=== PATIENT | female | born 1940 ===

== ENCOUNTER 2018-04-08 13:30 | Inpatient (IN) | payer OTHER ==
[2018-04-08] MEDS ORDERED: ATORVASTATIN CA20 MG PO (14:04)
[2018-04-08] MEDS ORDERED: OSTERA TABLET1 EACH PO (14:04)
[2018-04-08] MEDS ORDERED: LOSARTAN POTASS25 MG PO (14:05)
[2018-04-08] MEDS ORDERED: SINGULAIR10 MG PO (14:05)
[2018-04-08] MEDS ORDERED: ADVAIR HFA 115/12 GM IH (14:06)
[2018-04-17] MEDS ORDERED: GABAPENTIN800 MG PO (12:14)
[2018-04-17] MEDS ORDERED: DOCUSATE SODIU100 MG PO (12:14)
[2018-04-17] MEDS ORDERED: AMOX-CLAV 875-1 EACH PO (12:15)
[2018-04-17] MEDS ORDERED: CLONAZEPAM1 MG PO (12:16)
[2018-04-17] MEDS ORDERED: PERCOCET 5-3251 EACH PO (12:16)
== END 2018-04-18 14:11 | disposition home or self-care (01) | DRG 454 ==
LOC: EDBD → O/R 04-17 05:05 → PED 04-17 05:05 → SURG 04-17 09:45 → PED 04-17 13:49 → SURG 04-17 14:16 → PED 04-18 14:11
PROVIDERS: Orthopaedic Surgery Orthopaedic Surgery of the Spine
PROC: 0SG0071 Fusion of Lumbar Vertebral Joint with Autologous Tissue Substitute, Posterior Approach, Posterior Column, Open Approach (ICD-10-PCS; 2018-04-17)
PROC: 0ST20ZZ Resection of Lumbar Vertebral Disc, Open Approach (ICD-10-PCS; 2018-04-17)
PROC: 0SG00AJ Fusion of Lumbar Vertebral Joint with Interbody Fusion Device, Posterior Approach, Anterior Column, Open Approach (ICD-10-PCS; 2018-04-17)
PROC: 07DS3ZZ Extraction of Vertebral Bone Marrow, Percutaneous Approach (ICD-10-PCS; 2018-04-17)
PROC: 0SG00A0 Fusion of Lumbar Vertebral Joint with Interbody Fusion Device, Anterior Approach, Anterior Column, Open Approach (ICD-10-PCS; principal; 2018-04-17 09:45)
DX: M48.061 Spinal stenosis, lumbar region without neurogenic claudication (principal); M51.06 Intervertebral disc disorders with myelopathy, lumbar region; M43.16 Spondylolisthesis, lumbar region; I10 Essential (primary) hypertension